=== PATIENT | female | born 1980 | race Caucasian/White ===

== ENCOUNTER 2019-03-12 12:51 | Emergency (ER) | payer SELFPAY ==
--- NOTE | 2019-03-12 13:11 | Emergency Department Report ---
Blank Doc - Documentation Documentation: 38-year-old female that presents with left foot pain s/p fall. This initial assessment/diagnostic orders/clinical plan/treatment(s) is/are subject to change based on patient's health status, clinical progression and re- assessment by fellow clinical providers in the ED. Further treatment and workup at subsequent clinical providers discretion. Patient/guardians urged not to elope from the ED as their condition may be serious if not clinically assessed and managed. Initial orders include: 1- Patient sent to [facility] for further evaluation and treatment 2- xrays
[2019-03-12 13:13] VITALS: BP 134/87
--- NOTE | 2019-03-12 13:35 | XRay Report ---
Left foot-3 views INDICATION: pain s/p fall. COMPARISON: None. IMPRESSION: Obliquely oriented fracture at the base of the little toe proximal phalanx with mild bud rounding soft tissue swelling. Mild enthesopathic change at the calcaneal tuberosity. No significant DJD. Signer Name: Milton Rodriguez MD Signed: 03/12/2019 1:31 PM Workstation Name: [id number]
--- NOTE | 2019-03-12 13:53 | Emergency Department Report ---
HPI - General Chief Complaint: Extremity Injury, Lower Time Seen by Provider: 03/12/19 13:10 - HPI HPI: 38-year-old female presents to the emergency department with complaint of pain, bruising and swelling to the left pinky toe after she woke up this morning and accidentally hit her toe and foot on her metal bed frame. It caused a small cut to the bottom of the toe that has since stopped bleeding. Patient has increased pain with ambulation. She has not taken anything for her symptoms prior to presentation. No past medical history. ED Past Medical Hx - Past Medical History Hx Hypertension: No Hx Congestive Heart Failure: No Hx Diabetes: No Hx Deep Vein Thrombosis: No Hx Renal Disease: No Hx Sickle Cell Disease: No Hx Seizures: No Hx Asthma: No Hx COPD: No Hx HIV: No - Surgical History Past Surgical History?: No - Social History Smoking Status: Never Smoker Substance Use Type: None - Medications Home Medications: Home Medications Medication Instructions Recorded Confirmed Last Taken Type Ibuprofen [Motrin 600 MG tab] 600 mg PO Q8H PRN #20 tablet 03/12/19 Unknown Rx Sulfamethoxazole/Trimethoprim 1 each PO BID #10 tablet 03/12/19 Unknown Rx [Bactrim DS TAB] ED Review of Systems ROS: Stated complaint: LFT PINKY FRAC Other details as noted in HPI Comment: All other systems reviewed and negative Constitutional: denies: chills, fever Musculoskeletal: joint swelling (left toe swelling), arthralgia Skin: other (ecchymosis left toe) Neurological: denies: numbness, paresthesias Physical Exam - Physical Exam Vital Signs: Vital Signs 03/12/19 13:11 Temperature 98.4 F Pulse Rate 67 Respiratory 16 Rate Blood Pressure 134/87 O2 Sat by Pulse 94 Oximetry Physical Exam: GENERAL: The patient is well-developed well-nourished. HENT: Normocephalic. Atraumatic. Patient has moist mucous membranes. EYES: Extraocular motions are intact. NECK: Supple. Trachea is midline. SKIN: There is some mild swelling and ecchymosis to the left fifth/pinky toe. NEURO: The patient is awake, alert, and oriented. The patient is cooperative. The patient has no focal neurologic deficits. The patient has normal speech. MUSCULOSKELETAL: There is tenderness to palpation to the left fifth/pinky toe. +2 over 4 dorsalis pedis pulse of the affected left foot. ED Course Vital Signs 03/12/19 13:11 Temperature 98.4 F Pulse Rate 67 Respiratory 16 Rate Blood Pressure 134/87 O2 Sat by Pulse 94 Oximetry ED Medical Decision Making - Radiology Data Radiology results: report reviewed Left foot-3 views INDICATION: pain s/p fall. COMPARISON: None. IMPRESSION: Obliquely oriented fracture at the base of the little toe proximal phalanx with mild surrounding soft tissue swelling. Mild enthesopathic change at the calcaneal tuberosity. No significant DJD. - Medical Decision Making The patient hit her left fifth/pinky toe on her bed this morning x-ray show a obliquely oriented fracture at the base of this fifth toe. She has a small cut or abrasion on the plantar portion of this toe but it does not appear consistent with an open fracture. She has been placed in a postop surgical sandal and will be given referrals for both podiatry and orthopedics. She has been given a few days of antibiotics so she does not form any infection. She will return to the ER with any worsening of her symptoms or any acute distress. - Differential Diagnosis fracture, contusion, dislocation Critical Care Time: No Critical care attestation.: If time is entered above; I have spent that time in minutes in the direct care of this critically ill patient, excluding procedure time. ED Disposition Clinical Impression: Fracture of fifth toe, left, closed Qualifiers: Encounter type: initial encounter Qualified Code(s): S92.502A - Displaced unspecified fracture of left lesser toe(s), initial encounter for closed fracture Disposition: -01 TO HOME OR SELFCARE Is pt being admited?: No Condition: Stable Instructions: Toe Fracture (ED) Additional Instructions: I have given you a referral for a local sawyer [facility], Dr. Cardozo, and a local orthopedist, Dr. Mckenna, to follow up regarding your toe fracture. Return to the emergency Department with any worsening of your symptoms or any acute distress. Prescriptions: Sulfamethoxazole/Trimethoprim [Bactrim DS TAB] 1 each PO BID #10 tablet Ibuprofen [Motrin 600 MG tab] 600 mg PO Q8H PRN #20 tablet PRN Reason: Pain Referrals: AJAY MCKENNA MD [Staff Physician] - 3-5 Days PAOLA CARDOZO DPM [Staff Physician] - 3-5 Days Time of Disposition: 13:53
== END 2019-03-12 14:16 | disposition home or self-care (01) ==
LOC: ED 12:51
DX: S92.502A Displaced unspecified fracture of left lesser toe(s), initial encounter for closed fracture (principal); W22.8XXA Striking against or struck by other objects, initial encounter; Y93.89 Activity, other specified; Y92.89 Other specified places as the place of occurrence of the external cause; Y99.8 Other external cause status